=== PATIENT | female | born 2000 | race African-American/Black ===

== ENCOUNTER 2020-03-15 13:17 | Emergency (ER) | payer MEDICAID ==
[~2020-03-15] VITALS: Ht 160 cm; Wt 77.0 kg
[2020-03-15] MEDS ORDERED: PNV1TABL50 PO (13:58)
[2020-03-15] MEDS ORDERED: ALBU90AE INH (13:58)
[2020-03-15 14:07] VITALS: BP 156/75
== END 2020-03-15 14:08 | disposition home or self-care (01) ==
LOC: ER 13:17
DX: Z32.01 Encounter for pregnancy test, result positive (principal); Z76.0 Encounter for issue of repeat prescription; J45.909 Unspecified asthma, uncomplicated; Z98.890 Other specified postprocedural states
CPT/HCPCS: 99283